=== PATIENT | female | born 1975 | race Caucasian/White ===

== ENCOUNTER → 2023-09-02 15:57 | Outpatient (BNVA) | payer OTHER, SELFPAY | PROVIDERS: Visit Provider Physician Assistant | DX: M25.562 Pain in left knee (principal) | CPT/HCPCS: 73564; 99204 ==

== ENCOUNTER → 2023-09-09 15:23 | Outpatient (BNVA) | payer OTHER, SELFPAY | PROVIDERS: Visit Provider Physician Assistant | DX: M25.562 Pain in left knee (principal) | CPT/HCPCS: 99213 ==

== ENCOUNTER → 2025-05-29 08:52 | Outpatient (BNVA) | payer OTHER, SELFPAY | PROVIDERS: Visit Provider Physician Assistant | DX: S92.425A Nondisplaced fracture of distal phalanx of left great toe, initial encounter for closed fracture (principal); W18.49XA Other slipping, tripping and stumbling without falling, initial encounter | CPT/HCPCS: 73660; 99203 ==

== ENCOUNTER → 2025-07-04 09:38 | Outpatient (BNVA) | payer OTHER, SELFPAY | PROVIDERS: Visit Provider Emergency Medicine | DX: S92.425D Nondisplaced fracture of distal phalanx of left great toe, subsequent encounter for fracture with routine healing (principal); W18.49XD Other slipping, tripping and stumbling without falling, subsequent encounter | CPT/HCPCS: 99213 ==